=== PATIENT | male | born 1990 | race Two or more races ===

== ENCOUNTER 2016-10-03 23:23 | Emergency (ER) | payer OTHER, SELFPAY ==
[~2016-10-03] VITALS: Ht 167.6 cm; Wt 110.0 kg
[2016-10-04] MEDS ORDERED: ONDANSETRON 2MG/ML, 2ML ONE (02:22)
[2016-10-04] MEDS ORDERED: FAMOTIDINE 20 MG/2 ML ONE (02:22)
[2016-10-04] MEDS ORDERED: ONDANSETRON 2MG/ML, 2ML IVPush ONE (02:30)
[2016-10-04] MEDS ORDERED: FAMOTIDINE 20 MG/2 ML IVP ONE (02:30)
[2016-10-04] MEDS ORDERED: SODIUM CHLORIDE 0.9% 1,000ML IVBOLUS ONE (02:30)
[2016-10-04 03:18] LABS: HEMOGLOBIN 15.2 g/dL (13.7-18.0)
[2016-10-04 03:29] LABS: BLOOD UREA NITROGEN 12 mg/dL (7-18)
[2016-10-04 03:33] LABS: ASPARTATE AMINO TRANSFERASE 17 U/L (15-37)
[2016-10-04 03:49] VITALS: BP 128/74
== END 2016-10-04 04:23 | disposition home or self-care (01) ==
LOC: ED 10-04 02:51
DX: A09 Infectious gastroenteritis and colitis, unspecified (principal); R11.2 Nausea with vomiting, unspecified; R19.7 Diarrhea, unspecified
CPT/HCPCS: 36415; 80053; 83690; 85025; 96361; 96374; 96375; 99284; J2405; J7030; S0028

== ENCOUNTER 2018-05-30 15:02 | Emergency (ER) | payer OTHER ==
[~2018-05-30] VITALS: Ht 172.7 cm; Wt 232.0 kg
[2018-05-30] MEDS ORDERED: ONDANSETRON ODT 4 MG PO ONE (17:00)
[2018-05-30] MEDS ORDERED: HYDROmorphone 1 MG/ML, 1ML IM ONE (17:00)
[2018-05-30] MEDS ORDERED: HYDROmorphone 2 MG/ML, 1ML ONE (17:02)
[2018-05-30] MEDS ORDERED: ONDANSETRON ODT 4 MG ONE (17:02)
[2018-05-30 17:32] VITALS: BP 132/71
== END 2018-05-30 17:34 | disposition home or self-care (01) ==
LOC: ED 16:19
DX: S62.305A Unspecified fracture of fourth metacarpal bone, left hand, initial encounter for closed fracture (principal); S62.307A Unspecified fracture of fifth metacarpal bone, left hand, initial encounter for closed fracture; W51.XXXA Accidental striking against or bumped into by another person, initial encounter; Y93.89 Activity, other specified; Y99.8 Other external cause status; Y92.89 Other specified places as the place of occurrence of the external cause
CPT/HCPCS: 29125; 73130; 73200; 96372; 99284; J1170; Q0162

== ENCOUNTER 2018-05-31 10:56 | Emergency (ER) | payer OTHER ==
[~2018-05-31] VITALS: Ht 172.7 cm; Wt 104.1 kg
[2018-05-31] MEDS ORDERED: OXYcodone/APAP 5/325MG TABLET ONE (11:19)
[2018-05-31] MEDS ORDERED: OXYcodone/APAP 5/325MG TABLET PO ONE (11:30)
[2018-05-31] MEDS ORDERED: HYDROmorphone 2 MG/ML, 1ML ONE (12:55)
[2018-05-31] MEDS ORDERED: HYDROmorphone 1 MG/ML, 1ML IM ONE (13:00)
[2018-05-31 14:23] VITALS: BP 150/97
== END 2018-05-31 14:25 | disposition home or self-care (01) ==
LOC: ED 14:19
DX: S62.309A Unspecified fracture of unspecified metacarpal bone, initial encounter for closed fracture (principal); S63.055A Dislocation of other carpometacarpal joint of left hand, initial encounter; X58.XXXA Exposure to other specified factors, initial encounter; Y93.89 Activity, other specified; Y99.8 Other external cause status; Y92.009 Unspecified place in unspecified non-institutional (private) residence as the place of occurrence of the external cause
CPT/HCPCS: 29125; 73130; 96372; 99284; J1170